=== PATIENT | male | born 1990 | race Hispanic/Latino ===

== ENCOUNTER 2019-07-09 22:09 | Observation (INO) | payer BC, OTHER ==
--- OUTSIDE RECORDS SUMMARY | 2019-07-09 22:11 | XMS REPORT ---
:1990 Author Organization [employer] Care Team Providers Name Role Phone [facility] Provider Role Unavailable Allergies, Adverse Reactions, Alerts Substance Reaction Event Type N.K.D.A. Info Not Available Non Drug Allergy Problems Problem Type Condition Code Onset Dates Condition Status Assessment Elevated LFTs R94.5 Active Assessment HTN, goal below 140/90 I10 Active Assessment Fatty liver K76.0 Active Assessment BMI 33.0-33.9,adult Z68.33 Active Assessment Alcohol abuse F10.10 Active Assessment Mixed hyperlipidemia E78.2 Active Problem Fatty liver K76.0 Active Problem Alcohol abuse F10.10 Active Problem HTN, goal below 140/90 I10 Active Problem Elevated LFTs R94.5 Active Problem Mixed hyperlipidemia E78.2 Active Problem BMI 33.0-33.9,adult Z68.33 Active Medications Medication Code System Code Instructions Start Date End Date Status Dosage Lisinopril [facility] [id number] 10 MG Orally Once Jul 07, Active 1 tablet a day 2019 Results No Known Results Summary Purpose [employer] Submission
[2019-07-09] MEDS ORDERED: ACETAMINOPHEN 500 MG TAB ONE (23:21)
[2019-07-10] LABS: Protime INR 0.96
[2019-07-10 00:04] LABS: Absolute Lymphocytes (CBC) 1.9 K/uL (0.7-4.9); Basophils % 0.6 % (0-1.3); Hematocrit 45.6 % (39.6-49.0); Lymphocytes % 21.8 % (15.3-44.8); MPV 9.5 fL (7.6-11.3); RBC Red Blood Cell Count 5.21 M/uL (4.33-5.43)
[2019-07-10 00:17] LABS: ALT/SGPT 166 U/L (12-78); AST/SGOT 52 U/L (15-37); Albumin 4.1 g/dL (3.4-5.0); Alkaline Phosphatase 102 U/L (45-117); BUN Blood Urea Nitrogen 14 mg/dL (7-18); Bicarbonate 26 mmol/L (21-32); Bilirubin Direct < 0.1 mg/dL (0-0.2); Bilirubin Total 0.4 mg/dL (0.2-1.0); Glucose Level 110 mg/dL (74-106); Magnesium 2.3 mg/dL (1.8-2.4); NT PRO-BNP 13 pg/mL (<125); Potassium 3.7 mmol/L (3.5-5.1); Protein, Total 8.2 g/dL (6.4-8.2); Sodium Level 141 mmol/L (136-145); Troponin (Emerg Dept Use Only) < 0.02 ng/mL (0.0-0.045)
[2019-07-10 01:40] LABS: Lipase 100 U/L (73-393)
[2019-07-10] MEDS ORDERED: ASPIRIN 81 MG CHEWABLE TABLET ONE (02:32)
[2019-07-10] MEDS ORDERED: KETOROLAC 30 MG/ML INJ ONE (02:33)
--- NOTE | 2019-07-10 03:16 | P.HP ---
Certification for Inpatient Patient admitted to: Observation With expected LOS: <2 Midnights Patient will require the following post-hospital care: None Practitioner: I am a practitioner with admitting privileges, knowledge of patient current condition, hospital course, and medical plan of care. Services: Services provided to patient in accordance with Admission requirements found in Title 42 Section 412.3 of the Code of Federal Regulations Patient History Date of Service: 07/10/19 Primary Care Provider: Dr. Yaya Gallagher Reason for admission: Chest pain, shortness of breath, headache History of Present Illness: 28-year-old male presented to the emergency room with multiple complaints including chest pain, shortness of breath, headache, and nausea and vomiting. Patient reports that he was at work this past week. He start to have some weakness and dizziness. It was associated with some nausea, vomiting and headache. He went to the clinic at work. He was found to have elevated blood pressure with a blood pressure around 156/100. He was sent home and told to follow up with a PCP. He went to see his PCP. He was prescribed a lisinopril 10 mg daily. Then on he start to have some chest pain he rated the pain about a 6/10. He was a pressure-like sensation. It radiated to the back. It was mainly to the sternal area. It got better with rest. Tonight he had some headache and repeat chest pain. Pain was to the sternal region. It was associated with some headache and also radiated to the back. He came to the ER for further evaluation. In the ER patient had slight elevation in blood pressure upon arrival. CBC unremarkable. Sodium 141, potassium 3.7, BUN of 14, creatinine 0.9 with a GFR greater than 90. Glucose 110. Initial troponin less than 0.02. Lipase negative. D-dimer negative. AST elevated at 52, ALT 162. Chest x-ray unremarkable. CT head unremarkable. EKG showed no significant ST changes. ER physician was concerned for CAD. Patient admitted for observation. When I saw the patient ER, he appeared comfortable. He is without chest pain at that time. ER reported that he had some chest pain. He was given aspirin with relief. Patient with history of hypertension. He admits drinking alcohol mainly binge drinking, drinking at times 12 beers at a time. He denies tobacco or drug use. No significant family history of heart disease. Home medications list reviewed: Yes - Past Medical/Surgical History -: Hypertension -: Alcohol abuse Past Surgical History: Patient denies surgical history Psychosocial/ Personal History: Patient is single. He has 1 child. He works as a pipe fitter welding. - Family History Mother -: Diabetes - Social History Smoking Status: Never smoker Alcohol use: Yes CD- Drugs: No Caffeine use: Yes Place of Residence: Home Review of Systems General: As per HPI Eyes: Unremarkable ENT: Unremarkable Respiratory: Shortness of Breath, As per HPI Cardiovascular: Chest Pain, Light Headedness, As per HPI Gastrointestinal: Nausea, Vomiting, Unremarkable Genitourinary: Unremarkable Musculoskeletal: Unremarkable Integumentary: Unremarkable Neurological: Unremarkable Lymphatics: Unremarkable Physical Examination - Physical Exam General: Alert, In no apparent distress, Oriented x3, Cooperative HEENT: Atraumatic, Normocephalic, PERRLA, Mucous membr. moist/pink Neck: Supple, No Thyromegaly Respiratory: Clear to auscultation bilaterally, Normal air movement Cardiovascular: Normal pulses, Regular rate/rhythm Gastrointestinal: Normal bowel sounds, Soft and benign, Non-distended, No tenderness, No masses, No rebound, No guarding Musculoskeletal: No erythema, No tenderness, No warmth Integumentary: No tenderness/swelling, No erythema, No warmth, No cyanosis Neurological: Normal speech, Normal strength at 5/5 x4 extr, Normal tone, Normal affect - Studies Laboratory Data (last 24 hrs) 07/10/19 01:07: Lipase Cancelled 07/09/19 23:50: PT 11.3, INR 0.96 07/09/19 23:38: WBC 8.5, Hgb 16.2, Hct 45.6, Plt Count 179 07/09/19 23:38: Sodium 141, Potassium 3.7, BUN 14, Creatinine 0.98, Glucose 110 H, Magnesium 2.3, Total Bilirubin 0.4, AST 52 H, ALT 166 H, Alkaline Phosphatase 102, Lipase 100 Microbiology Data (last 24 hrs): 07/09/19 23:38 Nasopharnyx Influenza Type A Antigen Screen - Final 07/09/19 23:38 Nasopharnyx Influenza Type B Antigen Screen - Final Assessment and Plan - Plan Impression: Chest pain with shortness of breath Hypertension Alcohol abuse Elevated liver function likely related to alcohol use GERD Plan: Chest pain with shortness of breath: Patient admitted for observation and further evaluation. ER physician concerned for underlying CAD. Will continue to monitor telemetry and cardiac enzymes. Will continue with aspirin, Lipitor, lisinopril. Will provide nitroglycerin as needed. Heart score around 2-3. Will check urine drug screen. Will consult cardiology for further recommendation. Will provide Lovenox for DVT prophylaxis. Daytime hospitalist will continue his care. Anticipate discharge later today if cleared by cardiology. Hypertension: Will increase lisinopril to 10 mg 1 pill twice daily. Will monitor and adjust appropriately. Alcohol abuse: Alcohol cessation education provided. Elevated liver function likely related to alcohol use: Will send for hepatitis panel. Will check urine drug screen. Encourage alcohol cessation. GERD: Suspect underlying GERD. Will provide Pepcid. Discharge Plan: Home Plan to discharge in: 24 Hours - Advance Directives Does patient have a Living Will: No Does patient have a Durable POA for Healthcare: No - Code Status/Comfort Care Code Status Assessed: Yes (Patient is full code) Time Spent Managing Pts Care (In Minutes): 55
--- NOTE | 2019-07-10 03:28 | ER ---
Nurse's Notes [facility] Name: Khadar Mcdonald Age: 28 yrs Sex: Male : 1990 Arrival Date: 07/09/2019 Time: 22:10 Bed 15 Private MD: Yaya Gallagher Diagnosis: chest pain;shortness of breath;Headache Presentation: 07/09 22:09 Presenting complaint: Patient states: that on Thu he got sent home from work due to bp fc of 160/100. On went to PCP and got Rx for Lisinopril. Then that night started to have chest pain on and off. The chest pain has continued on and off along with on and off SOB, nausea, vomiting and light headed. Transition of care: patient was not received from another setting of care. Onset of symptoms was July 07, 2019. Risk Assessment: Do you want to hurt yourself or someone else? Patient reports no desire to harm self or others. Initial Sepsis Screen: Does the patient meet any 2 criteria? HR > 90 bpm. Yes Does the patient have a suspected source of infection? No. Patient's initial sepsis screen is negative. Care prior to arrival: None. 22:09 Method Of Arrival: Ambulatory fc 22:09 Acuity: NASEEM 3 fc Historical: - Allergies: 22:23 No Known Allergies; fc - Home Meds: 22:23 lisinopril 10 mg Oral tab 1 tab once daily [Active]; fc - PMHx: 22:23 Hypertension; fc - PSHx: 22:23 None; fc - Immunization history:: Last tetanus immunization: up to date. - Social history:: Smoking status: Patient/guardian denies using tobacco, Patient uses alcohol, occasionally. Patient/guardian denies using street drugs. - Ebola Screening: : Patient negative for fever greater than or equal to 101.5 degrees Fahrenheit, and additional compatible Ebola Virus Disease symptoms Patient denies exposure to infectious person Patient denies travel to an Ebola-affected area in the 21 days before illness onset. - Family history:: not pertinent. - Hospitalizations: : No recent hospitalization is reported. Screenin:09 Abuse screen: Denies threats or abuse. Nutritional screening: No deficits noted. fc Tuberculosis screening: No symptoms or risk factors identified. Fall Risk None identified. Assessment: 22:25 General: Appears in no apparent distress. Behavior is calm, cooperative, appropriate [facility] for age. Pain: Complains of pain in chest Pain does not radiate. Pain currently is 6 out of 10 on a pain scale. Quality of pain is described as sharp, Pain began gradually, 2-3 days ago. Neuro: Level of Consciousness is awake, alert, obeys commands, Oriented to person, place, time, situation. Cardiovascular: Patient's skin is warm and dry. Respiratory: Respiratory effort is even, unlabored, Respiratory pattern is regular. GI: No signs and/or symptoms were reported involving the gastrointestinal system. : No signs and/or symptoms were reported regarding the genitourinary system. EENT: No signs and/or symptoms were reported regarding the EENT system. Derm: Skin is pink, warm \T\ dry. Musculoskeletal: No deficits noted. 23:51 Reassessment: No changes from previously documented assessment. Patient returned from [facility] Radiology at this time; No further needs. 07/10 01:00 Reassessment: Patient appears in no apparent distress at this time. No changes from [facility] previously documented assessment. Patient is alert, oriented x 3, equal unlabored respirations, skin warm/dry/pink. 02:50 Reassessment: Patient appears in no apparent distress at this time. No changes from previously documented assessment. Patient and/or family updated on plan of care and expected duration. Pain level reassessed. Patient is alert, oriented x 3, equal unlabored respirations, skin warm/dry/pink. 03:52 Reassessment: Patient appears in no apparent distress at this time. No changes from previously documented assessment. Patient and/or family updated on plan of care and expected duration. Pain level reassessed. Patient is alert, oriented x 3, equal unlabored respirations, skin warm/dry/pink. Patient denies pain at this time. Vital Signs: 07/09 22:09 BP 149 / 104; Pulse 91; Resp 18; Temp 98.3(O); Pulse Ox 100% on R/A; Weight 108.86 kg fc (R); Height 5 ft. 7 in. (170.18 cm) (R); Pain 6/10; 23:52 BP 103 / 72; Pulse 94; Resp 20; Pulse Ox 96% on R/A; lp1 07/10 00:45 BP 137 / 90; Pulse 109; Resp 20; Pulse Ox 98% on R/A; lp1 01:45 BP 144 / 86; Pulse 85; Resp 17; Pulse Ox 97% on R/A; lp1 02:30 BP 131 / 75; Pulse 93; Resp 18; Pulse Ox 100% on R/A; wh 03:45 BP 130 / 80; Pulse 78; Resp 18; Pulse Ox 100% on R/A; wh 07/09 22:09 Body Mass Index 37.59 (108.86 kg, 170.18 cm) ED Course: 07/09 22:09 Arm band placed on Patient placed in an exam room, on a stretcher. fc 22:09 Patient has correct armband on for positive identification. Placed in gown. Bed in low fc position. Call light in reach. environmental monitoring specialist on. Pulse ox on. NIBP on. 22:09 No provider procedures requiring assistance completed. fc 22:10 Patient arrived in ED. ds1 22:12 Yaya Gallagher DO is Private Physician. ds1 22:21 Triage completed. fc 22:24 Randa Lal, RN is Primary Nurse. lp1 22:26 Patient maintains SpO2 saturation greater than 95% on room air. lp1 22:41 Kj Dugan MD is Attending Physician. wa 23:26 CT Head Brain wo Cont In Process Unspecified. EDMS 23:44 Inserted saline lock: 20 gauge in right antecubital area, using aseptic technique. oe Blood collected. 07/10 00:36 Chest Pa And Lat (2 Views) XRAY In Process Unspecified. EDMS 03:26 Leo Kurtz DO is Hospitalizing Provider. wa 04:12 Patient admitted, IV remains in place. wh Administered Medications: 07/09 23:36 Drug: Tylenol 1000 mg Route: PO; lp1 07/10 03:42 Follow up: Response: No adverse reaction wh 02:40 Drug: Aspirin Chewable Tablet 324 mg Route: PO; jd3 03:42 Follow up: Response: No adverse reaction wh 02:40 Drug: TORadol 30 mg Route: IVP; Site: right antecubital; jd3 03:42 Follow up: Response: No adverse reaction Outcome: 03:27 Decision to Hospitalize by Provider. wa 04:11 Admitted to Med/surg accompanied by tech, family with patient, via wheelchair, room wh 225, with chart, Report called to Betina Nobles RN 04:11 Condition: good 04:11 Instructed on the need for admit. 04:12 Patient left the ED. Signatures: Dispatcher [employer] EDNa Alvarez, RN RN Nelli Benitez ds1 Randa Lal RN RN lp1 Arie Reaves Winsy Kj Dugan MD MD wa Davies, Jonathon RN RN jd3
--- NOTE | 2019-07-10 03:28 | EDPHYS ---
Physician Documentation [facility] Name: Khadar Mcdonald Age: 28 yrs Sex: Male : 1990 Arrival Date: 07/09/2019 Time: 22:10 Bed 15 Private MD: Yaya Gallagher ED Physician Kj Dugan HPI: 07/10 08:09 This 28 yrs old Male presents to ER via Ambulatory with complaints of Chest wa Pain, High Blood Pressure. 08:09 The patient or guardian reports chest pain that is located primarily in the substernal wa area. The pain radiates to Associated signs and symptoms: Pertinent positives: dizziness, headache, nausea, shortness of breath, vomiting, Pertinent negatives: abdominal pain, cough, palpitations. The chest pain is described as aching. Duration: The patient or guardian reports multiple episodes, the episodes last approximately 30 minute(s). Modifying factors: The symptoms are alleviated by nothing. the symptoms are aggravated by nothing. Severity of pain: At its worst the pain was moderate in the emergency department the pain has improved. The patient has not experienced similar symptoms in the past. The patient has been recently seen by a physician: the patient's primary care provider. c/o [place], intermittent chest pain with assoc SOB, vomiting. also c/o pain in upper back. Historical: - Allergies: 07/09 22:23 No Known Allergies; fc - Home Meds: 22:23 lisinopril 10 mg Oral tab 1 tab once daily [Active]; fc - PMHx: 22:23 Hypertension; fc - PSHx: 22:23 None; fc - Immunization history:: Last tetanus immunization: up to date. - Social history:: Smoking status: Patient/guardian denies using tobacco, Patient uses alcohol, occasionally. Patient/guardian denies using street drugs. - Ebola Screening: : Patient negative for fever greater than or equal to 101.5 degrees Fahrenheit, and additional compatible Ebola Virus Disease symptoms Patient denies exposure to infectious person Patient denies travel to an Ebola-affected area in the 21 days before illness onset. - Family history:: not pertinent. - Hospitalizations: : No recent hospitalization is reported. ROS: 07/10 08:10 Constitutional: Negative for fever, chills, and weight loss, Eyes: Negative for injury, wa pain, redness, and discharge, ENT: Negative for injury, pain, and discharge, Neck: Negative for injury, pain, and swelling, Abdomen/GI: Negative for abdominal pain, nausea, vomiting, diarrhea, and constipation, : Negative for injury, bleeding, discharge, and swelling, MS/Extremity: Negative for injury and deformity, Skin: Negative for injury, rash, and discoloration, Psych: Negative for depression, anxiety, suicide ideation, homicidal ideation, and hallucinations. Cardiovascular: Positive for chest pain, Negative for edema, orthopnea, palpitations, paroxysmal nocturnal dyspnea. Respiratory: Positive for shortness of breath, Negative for cough. Back: Positive for pain at rest, of the upper back in assoc with chest pain. Neuro: Positive for dizziness, headache, Negative for altered mental status, tinnitus. All other systems are negative. Exam: 08:12 Constitutional: This is a well developed, well nourished patient who is awake, alert, wa and in no acute distress. Head/Face: Normocephalic, atraumatic. Eyes: Pupils equal round and reactive to light, extra-ocular motions intact. Lids and lashes normal. Conjunctiva and sclera are non-icteric and not injected. Cornea within normal limits. Periorbital areas with no swelling, redness, or edema. ENT: Nares patent. No nasal discharge, no septal abnormalities noted. Tympanic membranes are normal and external auditory canals are clear. Oropharynx with no redness, swelling, or masses, exudates, or evidence of obstruction, uvula midline. Mucous membranes moist. Neck: Trachea midline, no thyromegaly or masses palpated, and no cervical lymphadenopathy. Supple, full range of motion without nuchal rigidity, or vertebral point tenderness. No Meningismus. Chest/axilla: Normal chest wall appearance and motion. Nontender with no deformity. No lesions are appreciated. Cardiovascular: Regular rate and rhythm with a normal S1 and S2. No gallops, murmurs, or rubs. Normal PMI, no JVD. No pulse deficits. Respiratory: Lungs have equal breath sounds bilaterally, clear to auscultation and percussion. No rales, rhonchi or wheezes noted. No increased work of breathing, no retractions or nasal flaring. Abdomen/GI: Soft, non-tender, with normal bowel sounds. No distension or tympany. No guarding or rebound. No evidence of tenderness throughout. Back: No spinal tenderness. No costovertebral tenderness. Full range of motion. Skin: Warm, dry with normal turgor. Normal color with no rashes, no lesions, and no evidence of cellulitis. MS/ Extremity: Pulses equal, no cyanosis. Neurovascular intact. Full, normal range of motion. Neuro: Awake and alert, GCS 15, oriented to person, place, time, and situation. Cranial nerves II-XII grossly intact. Motor strength 5/5 in all extremities. Sensory grossly intact. Cerebellar exam normal. Normal gait. Psych: Awake, alert, with orientation to person, place and time. Behavior, mood, and affect are within normal limits. Vital Signs: 07/09 22:09 BP 149 / 104; Pulse 91; Resp 18; Temp 98.3(O); Pulse Ox 100% on R/A; Weight 108.86 kg fc (R); Height 5 ft. 7 in. (170.18 cm) (R); Pain 6/10; 23:52 BP 103 / 72; Pulse 94; Resp 20; Pulse Ox 96% on R/A; lp1 07/10 00:45 BP 137 / 90; Pulse 109; Resp 20; Pulse Ox 98% on R/A; lp1 01:45 BP 144 / 86; Pulse 85; Resp 17; Pulse Ox 97% on R/A; lp1 02:30 BP 131 / 75; Pulse 93; Resp 18; Pulse Ox 100% on R/A; wh 03:45 BP 130 / 80; Pulse 78; Resp 18; Pulse Ox 100% on R/A; wh 07/09 22:09 Body Mass Index 37.59 (108.86 kg, 170.18 cm) fc MDM: 07/09 22:41 Patient medically screened. mn 07/10 08:12 Differential diagnosis: acute myocardial infarction, acute pericarditis, anxiety, wa coronary artery disease chest wall pain, congestive heart failure cholecystitis, Cholelithiasis costochondritis, gastritis, pericarditis, pneumonia, pneumothorax, pulmonary embolus, stable angina, thoracic aortic disection, unstable angina. 08:13 Data reviewed: vital signs, nurses notes, lab test result(s), EKG, radiologic studies. mn Test interpretation: by ED physician or midlevel provider: EKG: interp by me: HR 80. sinus. nml axis. noted non-specific interventricular delay. Q wave in lead III. labs noted wnl including d-dimer and initial troponin. Response to treatment: the patient's symptoms have mildly improved after treatment. Physician consultation: Leo Kurtz DO. Admission orders: after a detailed discussion of the patient's condition and case, the admit orders are written by me. ED course: concern for ACS. no alternate dx found to explain symptoms. will admit and r/o . 07/09 23:03 Order name: Flu 07/09 23:03 Order name: Basic Metabolic Panel; Complete Time: 02:08 07/09 23:03 Order name: CBC with Diff; Complete Time: 01:06 07/09 23:03 Order name: LFT's; Complete Time: 02:08 07/09 23:03 Order name: Magnesium; Complete Time: 02:08 07/09 23:03 Order name: NT PRO-BNP; Complete Time: 02:22 07/09 23:03 Order name: CT Head Brain wo Cont 07/09 23:03 Order name: PT-INR; Complete Time: 01:06 07/09 23:03 Order name: Troponin (emerg Dept Use Only); Complete Time: 02:08 07/09 23:04 Order name: D-Dimer; Complete Time: 01:06 07/09 23:04 Order name: Influenza Screen (A ; Complete Time: 01:07 [facility] 07/10 01:36 Order name: Lipase; Complete Time: 02:08 [facility] 07/10 02:39 Order name: UDS 07/09 23:03 Order name: EKG; Complete Time: 23:04 07/09 23:03 Order name: Cardiac monitoring; Complete Time: 23:17 07/09 23:03 Order name: EKG - Nurse/Tech; Complete Time: 23:17 07/09 23:03 Order name: IV Saline Lock; Complete Time: 23:36 07/09 23:03 Order name: Labs collected and sent; Complete Time: 23:36 07/09 23:03 Order name: O2 Per Protocol; Complete Time: 23:17 07/09 23:03 Order name: O2 Sat Monitoring; Complete Time: 23:17 07/09 23:04 Order name: Chest Pa And Lat (2 Views) XRAY wa Administered Medications: 07/09 23:36 Drug: Tylenol 1000 mg Route: PO; lp1 07/10 03:42 Follow up: Response: No adverse reaction 02:40 Drug: Aspirin Chewable Tablet 324 mg Route: PO; jd3 03:42 Follow up: Response: No adverse reaction 02:40 Drug: TORadol 30 mg Route: IVP; Site: right antecubital; jd3 03:42 Follow up: Response: No adverse reaction Disposition: 07/10/19 03:27 Hospitalization ordered by Leo Kurtz for Observation. Preliminary diagnosis are chest pain, shortness of breath, Headache. - Bed requested for Telemetry/MedSurg (observation). - Status is Observation. - Condition is Stable. - Problem is new. - Symptoms have improved. UTI on Admission? No Signatures: Dispatcher [employer] [facility] Na Camacho RN RN Randa Lal RN RN [facility] Monica Arevalo RN RN Edyta Chatman Kj Dugan MD MD wa Davies, Jonathon, RN RN jd3 Corrections: (The following items were deleted from the chart) 01:35 01:08 LIPASE+C.LAB.BRZ ordered. [facility] 03:30 03:27 Hospitalization Ordered by Leo Kurtz DO for Observation. Preliminary cg diagnosis is chest pain; shortness of breath; Headache. Bed requested for Telemetry/MedSurg (observation). Status is Observation. Condition is Stable. Problem is new. Symptoms have improved. UTI on Admission? No. mn 04:12 03:30 07/10/2019 03:27 Hospitalization Ordered by Leo Kurtz DO for Observation. Preliminary diagnosis is chest pain; shortness of breath; Headache. Bed requested for Telemetry/MedSurg (observation). Status is Observation. Condition is Stable. Problem is new. Symptoms have improved. UTI on Admission? No.
[2019-07-10] MEDS ORDERED: ACETAMINOPHEN 500 MG TAB PO PRN (04:22)
[2019-07-10] MEDS ORDERED: NITROGLYCERIN 0.4 MG/TAB SL PRN (04:22)
[2019-07-10] MEDS ORDERED: ONDANSETRON 4 MG/2 ML VIAL IV PRN (04:22)
[2019-07-10 05:14] VITALS: BMI 34.5
[2019-07-10 05:31] VITALS: O2SAT 95
[2019-07-10 08:02] LABS: CKMB Creatine Kinase MB < 1.0 ng/mL (0.3-3.6); Creatine Phosphokinase 177 U/L (39-308); HDL Cholesterol 33 mg/dL (40-60); LDL Cholesterol, Calculated 143 (<130); Troponin I < 0.02 ng/mL (0.0-0.045)
--- NOTE | 2019-07-10 08:49 | RAD REPORT ---
EXAM DESCRIPTION: RAD - Chest Pa And Lat (2 Views) - 07/10/2019 12:23 am CLINICAL HISTORY: CHEST PAIN COMPARISON: None. TECHNIQUE: PA and lateral views of the chest were obtained. FINDINGS: The lungs are clear. Heart size is normal and central vasculature is within normal limit s. No pleural effusion or pneumothorax seen. No acute bony finding noted. No aortic abnormality. IMPRESSION: No acute cardiopulmonary process.
[2019-07-10] MEDS ORDERED: POTASSIUM CL SA 10 MEQ TAB PO ONE (09:00)
[2019-07-10] MEDS ORDERED: ENOXAPARIN 40 MG/0.4 ML SQ SCH (09:00)
[2019-07-10] MEDS ORDERED: FAMOTIDINE 20 MG TAB PO SCH (09:00)
[2019-07-10] MEDS ORDERED: LISINOPRIL 10 MG TAB PO SCH (09:00)
[2019-07-10] MEDS ORDERED: ASPIRIN EC 81 MG TAB PO SCH (09:00)
[2019-07-10 12:19] LABS: Urine Appearance CLEAR; Urine Bilirubin NEGATIVE (NEG); Urine Blood NEGATIVE (NEG); Urine Color YELLOW; Urine Glucose NEGATIVE (NEG); Urine Protein NEGATIVE (NEG); Urine Specific Gravity >=1.030 (1.005-1.030); Urine Urobilinogen 0.2 mg/dL (0.2-1.0)
[2019-07-10 12:26] LABS: Urine Microscopic Reflex NO UMIC
[2019-07-10 12:41] LABS: Barbiturates NEGATIVE (NEGATIVE); Benzodiazepines NEGATIVE (NEGATIVE); Cocaine NEGATIVE (NEGATIVE); METHAMPHETAM NEGATIVE (NEGATIVE); Methadone NEGATIVE (NEGATIVE); Opiates NEGATIVE (NEGATIVE); Phencyclidine NEGATIVE (NEGATIVE); THC Cannibis NEGATIVE (NEGATIVE)
--- NOTE | 2019-07-10 13:18 | EKG ---
Test Date: 2019-07-09 Test Time: 22:19:20 Processing Spec: HECTOR MEASUREMENT RESULTS: Intervals: Rate: 88 AL: 190 QRSD: 90 QT: 336 QTc: 406 [place]: P: 29 AL: 190 QRS: 23 T: 33 INTERPRETIVE STATEMENTS: Normal sinus rhythm Septal infarct, age undetermined Abnormal ECG No previous ECG available for comparison Electronically Signed On 07-10-19 13:17:36 CDT by Tip Keith
[2019-07-10 13:46] LABS: CKMB Creatine Kinase MB < 1.0 ng/mL (0.3-3.6); Creatine Phosphokinase 167 U/L (39-308); Troponin I < 0.02 ng/mL (0.0-0.045)
[2019-07-10 15:01] VITALS: BP 116/60; TEMP 96.9
[2019-07-10] MEDS ORDERED: ATORVASTATIN 40 MG TAB PO SCH (21:00)
--- NOTE | 2019-07-11 09:55 | CON ---
Date of Consultation: 07/10/2019 Reason For Consultation: Chest pain. History Of Present Illness: Mr. Higginbotham is only 28 years old and has no significant past medical histo ry. He takes lisinopril for hypertension. The chest pain started recently. He started having chest pain radiating to the back that is sharp. He had also some right shoulder pain, nonexertional. No nausea, vomiting, diaphoresis, PND, orthopnea, pedal edema, palpitations, or syncope. Symptoms laste d for a few hours. He was watching television and that happened. He came in hypertensive with some chest pain and some shortness of breath. He has already ruled out for an AL. The only abnormality o n him is the mild increase in liver function test. He admitted to significant alcohol intake. Allergies: NONE. Review of Systems: Negative. Social History: Negative for alcohol. No tobacco. Family History: Negative. Medications At Home: Lisinopril. Physical Examination: Vital Signs: Stable. Afebrile. HEENT: Negative. Neck: Supple. No bruit. Chest: Clear. Cardiac: Revealed a regular rhythm and rate. No murmurs, gallops, or rubs. Abdomen: Benign. Extremities: Revealed no clubbing, cyanosis, or edema. Diagnostic Data: As stated earlier. Impression And Plan: Atypical chest pain, most likely musculoskeletal or gastroesophageal in nature. Patient's only risk factor is hypertension that is probably a new onset. He is on lisinopril. I r ecommended he go home on proton pump inhibitor, decrease his alcohol intake, and continue his lisinop ril and I think it would be reasonable for him to have an outpatient stress test and medical manageme nt for that. NICK/JAROD Voice ID: [id number] Report ID: [id number]
--- NOTE | 2019-07-11 11:02 | RAD REPORT ---
EXAM DESCRIPTION: CT - Head Brain Wo Cont - 07/10/2019 3:24 am CLINICAL HISTORY: 28-year-old male with headache and high blood pressure TECHNIQUE: Multiple axial CT images of the brain were performed followed by sagittal and coronal rec onstructed images. The CT study is performed according to ALARA (as low as reasonably achievable) or ALARA/IMAGE GENTLY, with automatic adjustment of mA and/or kV according to patient size. Performed on: 07/09/2019 at 11:10 PM COMPARISON: None. FINDINGS: There is no evidence of mass, acute mass effect or midline shift. There are no acute extra -axial fluid collections. There is no evidence of acute intracranial hemorrhage. The cerebral sulci and ventricles are normal in size and configuration. There are no focal abnormal areas of increased or decreased attenuation. There is no significant mucosal thickening of the paranasal sinuses. The mastoid air cells are clear. The orbital contents are grossly unremarkable. No acute osseous abnormalities are identified. No focal soft tissue abnormalities are identified. IMPRESSION: 1. There is no evidence of acute intracranial pathology. Electronically signed by: Marcie Lowry DO 07/09/2019 11:57 PM CDT Due to temporary technical issues with the PACS/Fluency reporting system, reports are being signed by the in house radiologist as a courtesy to ensure prompt reporting. The interpreting radiologist is f ully responsible for the content of the report.
[2019-07-14 14:48] LABS: HBsAG Nonreactive (Nonreactive)
== END 2019-07-10 14:40 | disposition home or self-care (01) ==
LOC: ER 22:09 → ERHOLD 07-10 03:21 → 2ND 07-10 03:56
PROVIDERS: ADMIT Family Medicine; ATTEND Family Medicine
DX: R07.89 Other chest pain (principal); I10 Essential (primary) hypertension; F10.10 Alcohol abuse, uncomplicated; R07.9 Chest pain, unspecified; K21.9 Gastro-esophageal reflux disease without esophagitis
CPT/HCPCS: 36415; 70450; 71046; 80048; 80061; 80074; 80076; 80307; 81003; 82550; 82553; 83690; 83735; 83880; 84439; 84443; 84484; 85025; 85379; 85610; 87804; 93005; 96374; 99285; G0378; J1650